=== PATIENT | male | born 1950 | race Caucasian/White ===

== ENCOUNTER 2025-06-14 17:30 | Observation (INO) | payer OTHER, SELFPAY ==
[2025-06-14] VITALS (12 sets, daily range): BP systolic 113–144; BP diastolic 68–101; BMI 23.5; BMI 22.2
[2025-06-14 11:51] LABS: Hematocrit 40.8 % (39.0-52.0); Hemoglobin 12.7 g/dL (13.0-18.0); Mean Corp Hgb Conc. 31.1 g/dL (33.0-37.0); Mean Corpuscular Volume 65.6 fL (80.0-94.0); Nucleated Red Blood Cells % 0 % (-); Platelet Count 145 10^3/uL (130-400); Red Cell Dist. Width 17.7 % (11.5-14.5)
[2025-06-14 11:55] LABS: INR 1.01; PT 13.6 Sec (11.4-14.6)
[2025-06-14 11:56] LABS: APTT 27.6 Sec (23.4-35.0)
[2025-06-14 12:07] LABS: ALT (SGPT) 38 U/L (0-50); AST (SGOT) 29 U/L (17-59); Albumin 4.3 g/dl (3.5-5.0); Alkaline Phosphatase 59 U/L (38-126); Blood Urea Nitrogen 27 mg/dl (9-20); Calcium 8.5 mg/dl (8.4-10.2); Carbon Dioxide 24 mmol/L (22-30); Chloride 105 mmol/L (98-107); Estimated Creatinine Clearance 43 ml/min; Glucose 164 mg/dl (70-99); Potassium 5.0 mmol/L (3.5-5.1); Sodium 136 mmol/L (135-145); Total Protein 7.2 g/dl (6.3-8.2); eGFR 52.09
[2025-06-14 12:16] LABS: Troponin I < 0.012 ng/ml
--- NOTE | 2025-06-14 12:27 | ED.CVA ---
History of Present Illness
General
Chief Complaint: CVA/TIA Symptoms
Source: patient
Exam Limitations: none
Time Seen by Provider: 06/14/25 12:05
Onset of Stroke Symptoms
Onset of symptoms known: Yes
Date of onset of symptoms: 06/13/25
History of Present Illness
History of Present Illness:
See MDM
Past History
Past History
ED Past Medical History: Other (TIA)
ED Past Surgical History: Other (Retinal detachment)
Social History
Tobacco: Non-smoker
Alcohol: None
Phy Exam
Physical Exam
Physical Exam:
See MDM
Scores
NIH Stroke Score
Level of Consciousness: 0 - Alert
LOC Questions: 0-Answers both correctly
LOC Commands: 0-Performs both correctly
Best Horizontal Gaze: 0-Normal
Visual Garcia: 0=Normal, no visual loss
Facial Palsy: 0=Normal, symmetrical
Motor - Right Arm: 0=No drift 10 seconds
Motor - Left Arm: 0=No drift 10 seconds
Motor - Right Le-No drift 5 seconds
Motor - Left Le-No drift 5 seconds
Limb Ataxia: 0-Absent
Sensation: 0-Normal
Best Language: 0-No aphasia
Dysarthria: 0-Normal
Extinction and Inattention: 0-No abnormality
NIH Total Score:: 0
Course
Orders/Labs/Results
Orders:
Orders
06/14/25 11:25
CT Head W/o Iv Contrast Urgent
Comment:
Reason For Exam: R sidesd facial numbness and weakness
06/14/25 11:30
Complete Blood Count/With Diff Urgent
Comprehensive Metabolic Panel Urgent
PTT Urgent
Prothrombin Time Urgent
Troponin I Urgent
06/14/25 12:30
Electrocardiogram (*1) Urgent
Reason for Study: TIA/Stroke
EKG- Treatment ONCE
06/14/25 15:09
Aspirin Chewable [Low Strength Aspirin] 324 mg PO NOW STA
Clopidogrel Bisulfate [Plavix] 75 mg PO NOW STA
Abnormal Lab Results
06/14/25
11:30
RBC 6.22 H 10^6/uL
(4.70-6.10)
Hgb 12.7 L g/dL
(13.0-18.0)
MCV 65.6 L fL
(80.0-94.0)
MCH 20.4 L pg
(27.0-31.0)
MCHC 31.1 L g/dL
(33.0-37.0)
RDW 17.7 H %
(11.5-14.5)
Absolute Lymphs (auto) 0.9 L 10^3/uL
(1.2-3.4)
Neutrophils % 79.4 H %
(42.2-75.2)
Lymphocytes % 14.2 L %
(20.5-51.1)
BUN 27 H mg/dl
(9-20)
Creatinine 1.4 H mg/dL
(0.7-1.3)
Glucose 164 H mg/dl
(70-99)
06/14/25 11:30
06/14/25 11:30
Vital Signs
Initial and Last Documented VS:
Initial Vital Signs
Temp Pulse Resp BP Pulse Ox
97.8 F 88 16 144/101 94
06/14/25 11:21 06/14/25 11:21 06/14/25 11:21 06/14/25 11:21 06/14/25 11:21
Last Documented Vital Signs
Temp Pulse Resp BP Pulse Ox
97.8 F 82 19 131/82 96
06/14/25 11:21 06/14/25 14:06/14/25 14:00 06/14/25 14:00 06/14/25 14:00
MDM/Problems Addressed
Differential Diagnosis Includes:
Note:
CHIEF COMPLAINT(S)
Unsteadiness and dizziness following a suspected transient ischemic attack (TIA).
HISTORY OF PRESENT ILLNESS
The patient is a 74-year-old male with a history of transient ischemic attacks (TIAs) who presented with unsteadiness and dizziness occurring last night. The patient experienced a transient 'tinge' sensation in the face while in the bathroom,
followed by a loss of balance and a feeling of impending syncope, though no syncope occurred. He reported cold sweats, similar to previous TIA episodes, and took aspirin before returning to bed. The patient described his state as feeling 'drunk' or
like he 'drank a bottle of scotch,' although he did not consume alcohol. This morning, he noticed persistent unsteadiness and a sensation described as foggy or confused. The patients prior TIA episodes included similar symptoms, with one episode
leading to vomiting and hospitalization.
The patient is scheduled for cataract surgery on Saturday, but due to his current condition, he sought medical evaluation. He expressed concern about the potential impact of his symptoms on the upcoming surgery.
PAST MEDICAL AND SURIGICAL HISTORY
Past medical history significant for previous transient ischemic attacks. Additionally, the patient has a history of eye surgeries for retinal detachment including procedures with gas bubble insertion following retinal detachments.
PAST SURGICAL HISTORY
The patient has undergone multiple eye surgeries for retinal detachment, including the placement and removal of gas and oil bubbles.
PHYSICAL EXAM
General: Alert, no acute distress.
Skin: Warm, dry.
Head: Normocephalic, atraumatic
Neck: Appears supple, trachea midline.
Eyes, Ears, Nose, Mouth, and Throat: Oral mucosa moist.
Cardiovascular: No signs of cyanosis. Regular rate and rhythm
Respiratory: Respirations are non-labored.
Abdomen: Non-distended
Musculoskeletal: No deformities
Neurological: No focal neurological deficit observed. Negative Ruby-Hallpike. Normal finger-nose
Psychiatric: Cooperative, appropriate mood and affect.
PROBLEM LIST
Acute:
1. Unsteadiness and dizziness potentially due to TIA or minor stroke.
2. Scheduled cataract surgery in conjunction with retinal detachment repair.
PLAN
1. Perform blood work and a computed tomography (CT) scan to rule out bleeding and assess for any acute changes.
2. Depending on results, consider admission for further stroke workup, including possible MRI and additional testing.
3. Consult with neurology regarding the need for anti-platelet therapy, considering upcoming eye surgery.
4. Contact eye surgeon to discuss potential postponement of scheduled cataract surgery in light of current health issues.
DIFFERENTIAL DIAGNOSIS
The Differential Diagnosis includes, in no particular order and is not limited to:
1. Transient Ischemic Attack (TIA)
2. Stroke, particularly cerebellar
3. Vestibular disorders
4. Orthostatic hypotension
5. Dehydration
6. Inner ear infection
7. Medication side effects (if applicable)
8. Hypoglycemia
9. Electrolyte imbalance
10. Anxiety or panic attack
06/14/25 - 12:56
Spoke with ophthalmology resident, no concern with aspirin or plavix; MRI can proceed with patient lying down. Continuing stroke workup and plan to admit for further evaluation. Ophthalmology advises rescheduling upcoming procedures post-discharge.
My independent EKG interpretation is:
- Time of EKG: Not specified
- Rhythm: Sinus rhythm
- Heart rate: 71 beats per minute
- Notable intervals: First degree AV block
- Lavalette: Normal axis
SUMMARY OF ENCOUNTER
The 74-year-old male patient was seen in the emergency department due to unsteadiness and dizziness following a suspected transient ischemic attack (TIA). The patient experienced a 'tinge' sensation in the face, loss of balance, and symptoms of
impending syncope without actual syncope. He also reported cold sweats similar to previous TIA episodes. The patient was concerned about how these symptoms may affect his scheduled cataract surgery. Management in the emergency department involved
treating the symptoms as a possible stroke with aspirin and clopidogrel (Plavix). A further hospital admission was planned to allow for MRI evaluation to confirm or rule out a stroke. Once the stroke evaluation is complete, the patient will
potentially continue with the scheduled cataract surgery plan.
DISPOSITION
Admit
ASSESSMENT
The patients symptoms could indicate a possible stroke or TIA considering the history and presentation of symptoms related to transient neurological deficits.
EMERGENCY TREATMENTS ADMINISTERED
Aspirin and clopidogrel were administered as prophylactic treatment for presumed stroke/TIA.
MANAGEMENT OF THE PATIENTS CARE WAS DISCUSSED WITH
There was a discussion with the ophthalmology team concerning the patients upcoming cataract surgery, ultimately leading to the decision for hospital admission and further evaluation.
PLAN
The current plan is to admit the patient to allow for an MRI to assess for any acute changes indicative of a stroke. Following this, appropriate management for stroke prevention will continue, and the eye surgeon will be contacted regarding the eye
surgery rescheduling after clearing the neurological concerns.
MEDICATION RECONCILIATION
Aspirin and clopidogrel (Plavix) were administered.
MEDICAL DECISION MAKING
-Complexity of Data Reviewed: Chronic conditions affecting care [transient ischemic attacks, eye surgeries for retinal detachment, concern about surgical implications]
Differential Diagnosis includes TIA, stroke (particularly cerebellar), vestibular disorders, orthostatic hypotension, dehydration, inner ear infection, medication side effects, hypoglycemia, electrolyte imbalance, anxiety or panic attack.
-Data:
Category 1
Discussion of upcoming laboratory and imaging workups as part of hospital admission.
Category 3
Management of the patients care was coordinated with the ophthalmology team and consideration of stroke workup and treatment was discussed.
DIAGNOSIS
Possible Stroke (ICD-10-CM I63.9)
Transient Ischemic Attack (TIA) (ICD-10-CM G45.9) (Provisional Diagnosis)
*Pulse Oximetry
SaO2: 93
Oxygen Mode of Delivery: Room air
Patient hypoxic: no
*Critical Care Note
Total Time (30-74mins, 75-104mins- exclusive of procedures): Not Applicable
ED Attending Note
-
Portions of this chart may have been created with voice recognition software.� Occasional wrong word or��sound alike� substitutions may have occurred due to the inherent limitations of voice recognition software.
Discharge Plan
Departure
Patient Disposition: Admit
Date of Disposition: 06/14/25
Time of Disposition: 15:20
Presentation/result/management discussed w/ accepting MD/DO: Hospitalist
Discharge Problem:
Dizziness
Referrals:
NONE,* [Family Provider, Internal Medicine]
Interventions
Interventions:
*Risk Screen - Suicide Last Done: 06/14/25 11:21
*General Assessment Last Done: 06/14/25 11:21
*Neglect/Abuse Screening Last Done: 06/14/25 11:21
*ED- Fall Risk Assessment Last Done: 06/14/25 11:53
*ED COVID-19 Vaccine History Last Done: 06/14/25 11:53
ED- Cardiac Assessment Last Done: 06/14/25 11:53
ED- Neurological Assessment Last Done: 06/14/25 11:53
ED- Pulmonary Assessment Last Done: 06/14/25 11:53
Discharge Date and Time
Print Language: IRISH
[2025-06-14] MEDS: LOW STRENGTH ASPIRIN 324 MG PO (15:38)
[2025-06-14] MEDS: PLAVIX 75 MG PO (15:39)
--- NOTE | 2025-06-14 17:10 | HPS.HSE ---
Family Physician
-
Family Physician: * NONE
Chief Complaint
-
face tingling
History of Present Illness
74-year-old male past medical history of retinal detachment of left eye, cataracts of left eye, prior TIAs presenting with episode of corner of his right mouth feeling odd last night lasting a few seconds as well as today. Today he also had a
dizziness/vertigo sensation which shortly resolved soon after. Denies any symptoms currently. No difficulty speaking or swallowing, numbness or tingling on the body or focal weakness.
He had prior episodes of tingling of the right face thought to be TIAs in the past.
He has an appointment with ophthalmology tomorrow for cataract surgery tomorrow.
Denies smoking or alcohol use.
Medical History
Past Medical History
Past Medical History: Reports Other (retinal detachment of left eye, cataracts of left eye, prior TIAs)
Past Surgical History: Reports None
Social History
Tobacco: Non-smoker
Alcohol: None
Drug: None
Family History
Family History: Not pertinent
Allergies / Home Medications
Allergies reflects when Allergies were last updated in [facility].
Home Medications with original date entered in [facility]
Allergy/Medication List:
Allergies
Allergy/AdvReac Type Severity Reaction Status Date / Time
No Known Allergies Allergy Verified 06/14/25 11:42
Home Medications
aspirin 81 mg tablet,delayed release 162 mg PO DAILYPRN PRN chest pains 06/14/25
ofloxacin 0.3 % eye drops 1 drp LEFT EYE QID 06/14/25
prednisolone acetate 1 % eye drops,suspension 1 drp LEFT EYE QID 06/14/25
Review of Systems
-
Constitutional: Reports No Symptoms
EENT: Reports No Symptoms
Respiratory: Reports No Symptoms
Cardiac: Reports No Symptoms
Abdomen/GI: Reports No Symptoms
: Reports No Symptoms
Musculoskeletal: Reports No Symptoms
Skin: Reports No Symptoms
Neurological: Reports No Symptoms
Endocrine: Reports No Symptoms
Hematologic/Lymphatic: Reports No Symptoms
Psych: Reports No Symptoms
Physical Exam
Vital Signs
Vital Signs
Temp Pulse Resp BP Pulse Ox
97.8 F 85 20 129/82 95
06/14/25 11:21 06/14/25 15:45 06/14/25 15:45 06/14/25 15:00 06/14/25 15:45
Physical Exam
General: Well Developed, Well Nourished and No Apparent Distress
HEENT: NormoCephalic, Moist mucous membranes and Atraumatic
Respiratory: Clear
Cardiac: S1/S2 and Regular Rhythm; No Murmur or Rub
GI: Soft, Non Tender, Non Distended and Normal Bowel Sounds; No Organomegaly
Rectal: Deferred by Provider
Musculoskeletal: No Clubbing, No Cyanosis and No Edema
Skin: No Rash
Neuro: Nonfocal/grossly intact
Laboratory Results
-
06/14/25 11:30
06/14/25 11:30
Laboratory Results
PT 13.6 Sec (11.4-14.6) 06/14/25 11:30
INR 1.01 06/14/25 11:30
APTT 27.6 Sec (23.4-35.0) 06/14/25 11:30
Total Bilirubin 1.3 mg/dl (0.2-1.3) 06/14/25 11:30
AST 29 U/L (17-59) 06/14/25 11:30
ALT 38 U/L (0-50) 06/14/25 11:30
Alkaline Phosphatase 59 U/L (38-126) 06/14/25 11:30
Troponin I < 0.012 ng/ml 06/14/25 11:30
Data Reviewed
-
Lab Data: Labs Reviewed by me
Old Records: Reviewed
Impression/Plan
-
IMPRESSION:
PLAN:
#TIA versus CVA
- Symptoms resolved
-CT head shows no acute abnormality peripheral mild chronic white matter disease
- ER spoke with ophthalmology at [facility] who are okay with patient receiving aspirin and Plavix
-Check A1c and lipid panel
- MRI brain
# CHRISS versus CKD
- Creatinine 1.4, no prior for comparion
- Fluid bolus, encourage oral intake
History of retinal detachment
History of cataracts of left eye
- Continue eyedrops
- Has procedure with ophthalmology tomorrow and this week
Full code
DVT prophylaxis�SCDs
Regular diet
[2025-06-14] MEDS: NSS 500 IV (17:25)
[2025-06-14] MEDS: OCUFLOX 1 DROP LEFT EYE (20:58)
[2025-06-14] MEDS: PRED FORTE 1% EYE DROPS 1 DROP LEFT EYE (20:59)
[2025-06-15 03:23] VITALS: BP 104/63
[2025-06-15 07:20] VITALS: BP 118/75
[2025-06-15] MEDS: LOW STRENGTH ASPIRIN 81 MG PO (07:51)
[2025-06-15] MEDS: OCUFLOX 1 DROP LEFT EYE (07:51)
[2025-06-15] MEDS: PLAVIX 75 MG PO (07:51)
[2025-06-15] MEDS: PRED FORTE 1% EYE DROPS 1 DROP LEFT EYE (07:52)
[2025-06-15 08:17] LABS: Hematocrit 38.5 % (39.0-52.0); Hemoglobin 12.2 g/dL (13.0-18.0); Mean Corp Hgb Conc. 31.7 g/dL (33.0-37.0); Mean Corpuscular Volume 65.8 fL (80.0-94.0); Nucleated Red Blood Cells % 0 % (-); Red Cell Dist. Width 17.8 % (11.5-14.5)
[2025-06-15 08:43] LABS: ALT (SGPT) 32 U/L (0-50); AST (SGOT) 27 U/L (17-59); Albumin 3.8 g/dl (3.5-5.0); Alkaline Phosphatase 47 U/L (38-126); Blood Urea Nitrogen 22 mg/dl (9-20); Calcium 8.6 mg/dl (8.4-10.2); Carbon Dioxide 27 mmol/L (22-30); Chloride 107 mmol/L (98-107); Estimated Creatinine Clearance 45 ml/min; Glucose 83 mg/dl (70-99); Potassium 4.9 mmol/L (3.5-5.1); Sodium 140 mmol/L (135-145); Total Protein 6.5 g/dl (6.3-8.2); eGFR 56.93
[2025-06-15 09:00] LABS: Platelet Count 128 10^3/uL (130-400)
--- NOTE | 2025-06-15 10:37 | W.PN.HOSP.TC ---
Today's Communication/Plan
-
OK for DC
Assessment / Plan
Assessment / Plan
HPI: 74-year-old male past medical history of retinal detachment of left eye, cataracts of left eye, prior TIAs; p/w the corner of his right mouth feeling odd the night [employer] that lasted a few seconds.
He denies to other symptoms. No difficulty speaking or swallowing, numbness or tingling on the body or focal weakness.
He had prior episodes of tingling of the right face thought to be TIAs in the past.
He has an appointment with ophthalmology for cataract surgery tomorrow.
Denies smoking or alcohol use.
A/P:
# possible TIA versus others
Symptoms resolved
CT head shows no acute abnormality peripheral mild chronic white matter disease
MRI brain: No acute intracranial abnormality noted.
ER spoke with ophthalmology at [facility] who are okay with patient receiving aspirin and Plavix
Cont [employer] ASA after discharge
Can follow up A1C and LDL as part of stroke/TIA work up
Ambulatory function intact, no need for PT
# CHRISS versus CKD
Creatinine 1.4 on admission, today at 1.3, no prior for comparison
Cont to trend SCr
s/p Fluid bolus, encourage oral intake
# History of retinal detachment
# History of cataracts of left eye
Continue eyedrops
Has procedure with ophthalmology tomorrow and this week
Full code
DVT prophylaxis�SCDs
Regular diet
Anticipated Discharge: Today
Subjective/Interval History
-
Date of Service: June 15, 2025
Objective Data
-
Labs:
Laboratory Results
06/15/25
06:14
WBC 4.8
Hgb 12.2 L
Hct 38.5 L
Plt Count 128 L
Sodium 140
Potassium 4.9
Chloride 107
Carbon Dioxide 27
BUN 22 H
Creatinine 1.3
Glucose 83
Calcium 8.6
Total Bilirubin 1.9 H
AST 27
ALT 32
Alkaline Phosphatase 47
Vital Signs:
Vital Signs
Temp Pulse Resp BP Pulse Ox
36.8 C 69 16 118/75 95
06/15/25 07:20 06/15/25 07:20 06/15/25 07:20 06/15/25 07:20 06/15/25 08:53
Review of Systems
-
History Source: Patient
All other systems: Reviewed and negative
Neuro: Reports No Symptoms; Denies Headache, Weakness, Numbness or Lightheadedness
Physical Exam
-
General: Well Developed, Well Nourished, No Apparent Distress, Comfortable and Conversant; Negative Respiratory Distress
HEENT: Normocephalic, Atraumatic, Nose Appears Normal and Ears Appear Normal; Negative Oxygen
Respiratory: Clear to Auscultation and Non Labored Respirations; Negative Accessory Resp Muscle Use
Cardiac: Regular Rhythm and S1/S2
GI: Soft, Nontender, Nondistended and Normal Bowel Sounds
Skin: Warm and Dry
Neuro: Awake, Alert, Oriented, AO x 3 and Nonfocal/Grossly Intact
Psych: Calm and Intact Judgement/Insight
Data Reviewed
-
CT Scan: Report Reviewed by me and Discussed with Patient
MRI: Report Reviewed by me and Discussed with Patient
Labs: Labs Reviewed by me
[2025-06-15 11:10] VITALS: BP 122/80
[2025-06-15 11:15] LABS: LDH 185 U/L (120-246)
--- NOTE | 2025-06-15 11:29 | CM ---
Alert awake oriented pt who lives with his dgt Miranda in a 2 story home with 1 step to enter and 16 steps to bed bathroom. He is independent in driving and all ADLs.No adaptive devices.Offered VN he declined need. MORALES letter given explained signed
on chart.His ex Malu will drive him home.
No VN / SNF hx
Pharmacy [facility] [address]
PCP DR Pavithra Millard
PLAN Home no needs
[2025-06-15 11:39] LABS: LDL Cholesterol, Direct 74 mg/dl
[2025-06-15 12:12] LABS: Glycohemoglobin (HgbA1c) 5.2 % (4.0-5.6)
--- NOTE | 2025-06-15 14:11 | W.DCSUMMARY ---
Discharge Summary
Discharge Data
Date of Admission: 06/14/25
Date of Discharge: 06/15/25
Total time spent discharging patient (in min): 40
-
Pending Results: No
Hospital Course
Principal Diagnosis:
Right perioral tingling sensation, TIA versus mild peripheral nerve problem- resolved
Chronic Diagnoses:�
Suspect CKD stage III, creatinine appears to be stable at 1.3 on the day of discharge
History of retinal detachment
History of cataracts of left eye
Consultations:�
None
Procedures:�
None
Clinical course:�
This is a 74-year-old male with past medical history as stated above, who presented with mild tingling sensation in the corner of his right mouth which resolved within seconds.
He denies to other neurologic symptoms.
Problem 1:
Right perioral tingling sensation, TIA versus mild peripheral nerve problem- resolved.
His CT head and MRI brain were both unrevealing, did not show any acute intracranial abnormality.
He can continue with prior to admission aspirin following discharge.
His A1c and LDL were within normal limits, at 5.2% and 74 respectively.
As for the rest of his medical problems, they were stable during his hospital stay.
Discharge Plan
-
Patient Disposition: Home (Routine Discharge)
Discharge Diagnosis/Procedures: Mild tingling at corner of mouth (resolved)- ruled out acute stroke
Condition: Good
Diet: As tolerated, Low Fat, Low Cholesterol and Low Sodium
Activity: As tolerated
Driving Restrictions: As prior to admission
Referrals:
NONE,* [Family Provider, Internal Medicine] - in less than 1 week
Prescriptions:
Continued
ofloxacin 0.3 % Drops
1 drp LEFT EYE QID
aspirin 81 mg Tablet,Delayed Release (Dr/Ec)
162 mg PO DAILYPRN PRN (Reason: chest pains)
prednisolone acetate 1 % Drops,Suspension
1 drp LEFT EYE QID
Discharge Orders:
Discharge Patient (As Directed); Ordered 06/15/25
Ordered By: Tali Fernandez
Discharge Date and Time
Print Language: SPANISH
[2025-06-15] MEDS: OCUFLOX LEFT EYE (14:41)
[2025-06-15] MEDS: PRED FORTE 1% EYE DROPS LEFT EYE (14:41)
== END 2025-06-15 15:00 | disposition home or self-care (01) ==
LOC: 4 EAST ACU 17:30
PROVIDERS: Student in an Organized Health Care Education/Training Program; ADMITTING PHYSICIAN Hospitalist; ATTENDING PHYSICIAN Internal Medicine; EMERGENCY PHYSICIAN Student in an Organized Health Care Education/Training Program
DX: R20.2 Paresthesia of skin (principal); R94.4 Abnormal results of kidney function studies
CPT/HCPCS: 70450; 70551; 80053; 83036; 83615; 83721; 84484; 85025; 85610; 85730; 93005; 99285; G0378

== ENCOUNTER → 2025-10-27 12:49 | Outpatient (REF) | payer OTHER, SELFPAY | LOC: RAD 12:49 | PROVIDERS: ATTENDING PHYSICIAN Internal Medicine; FAMILY PHYSICIAN Family Medicine | DX: J06.9 Acute upper respiratory infection, unspecified (principal) | CPT/HCPCS: 71046 ==